=== PATIENT | female | born 1970 | race Caucasian/White ===

== ENCOUNTER 2021-04-01 14:54 | Emergency (ER) | payer OTHER ==
[2021-04-01] MEDS ORDERED: CYCLOBENZAPRINE10 MG PO (16:40)
== END 2021-04-01 16:48 | disposition home or self-care (01) ==
LOC: ER1 14:54
DX: S16.1XXA Strain of muscle, fascia and tendon at neck level, initial encounter (principal); I10 Essential (primary) hypertension; Z90.49 Acquired absence of other specified parts of digestive tract; Z88.6 Allergy status to analgesic agent; Z88.8 Allergy status to other drugs, medicaments and biological substances; V49.40XA Driver injured in collision with unspecified motor vehicles in traffic accident, initial encounter; Y92.481 Parking lot as the place of occurrence of the external cause
CPT/HCPCS: 72125; 99283